=== PATIENT | female | born 1995 | race Caucasian/White ===

== ENCOUNTER 2016-10-16 08:40 | Emergency (ER) | payer MEDICAID ==
[~2016-10-16] VITALS: Ht 172.7 cm; Wt 84.4 kg
[~2016-10-16 08:40] MED LIST: CALTTAB5 PO; ORTHTAB4 PO; PREN1PAK2 PO
[2016-10-16 08:47] VITALS: BP 135/84; PULSE 60; RESP 18; TEMP 97.9; O2SAT 99
[2016-10-16] MEDS ORDERED: DIAZ5 PO (09:06)
[2016-10-16] MEDS ORDERED: MEDR4PAK PO (09:06)
[2016-10-16] MEDS ORDERED: IBUP-232 PO (09:06)
[2016-10-16] MEDS ORDERED: oxyCODONE/ACETAMINOPHEN 5 MG/325 MG TAB PO ONE (09:15)
[2016-10-16] MEDS ORDERED: KETOROLAC TROMETHAMINE 60 MG/2 ML (IM) VIAL IM ONE (09:15)
[2016-10-16] MEDS ORDERED: DIAZEPAM 5 MG TAB PO ONE (09:15)
[2016-10-16] MEDS ORDERED: DEXAMETHASONE SOD PHOS 20 MG/5 ML VIAL IM ONE (09:15)
--- NOTE | 2016-10-16 09:17 | PD ---
HPI Chief Complaint: Back/ Neck Pain or Injury Time Seen by Provider: 08:57 Travel History International Travel<30 days: No Contact w/Intl Traveler<30days: No History of Present Illness HPI Patient is a 21-year-old female who presents to emergency room complaints of pain to her left side of her neck. Patient reports that while she was lifting up her 5-month-old son, she must have turned her neck the wrong way. Reports that she immediately felt a pain to the left side of her neck and reports pain with turning her neck. Reports no fall or overt trauma other than picking up her 5 month old son. Reports, "my neck just feels stuck to one side." Denies fever/chills, no other c/o. PFSH Past Medical History Asthma: No Blood Disorders: No Heart Rhythm Problems: No Cardiovascular Problems: No Chest Pain: No Cystic Fibrosis: No Diminished Hearing: No Headaches: No Hypertension: No Neurologic: No Respiratory: Yes (SNORING) Immunizations Current: Yes Migraines: No Seizures: No Sickle Cell Disease: No Sleep Apnea: No Past Surgical History Abdominal Surgery: No Appendectomy: No Cardiac Surgery: No Cholecystectomy: No Ear Surgery: No Endocrine Surgery: No Eye Surgery: No Genitourinary Surgery: No Gynecologic Surgery: No Neurologic Surgery: No Oral Surgery: No Thoracic Surgery: No Family History Family History: Negative Social History Alcohol Use: No Tobacco Use: No Substance Use: No Allergies-Medications (Allergen,Severity, Reaction): Coded Allergies: No Known Allergies (Verified , 10/16/16) Reported Meds & Prescriptions Reported Meds & Active Scripts Active Ibuprofen 600 Mg Tab 600 Mg PO Q6H PRN Valium (Diazepam) 5 Mg Tab 5 Mg PO BID PRN Medrol Dosepak (Methylprednisolone) 4 Mg Dspk 4 Mg PO DIRECTED Per Pharmacist direction Ortho Tri-Cyclen (Norgestimate-Ethinyl Estradiol) 0.18/0.215/0.25 mg-35 Mcg Tab 1 Tab PO DAILY Review of Systems General / Constitutional: No: Fever, Chills Eyes: No: Visual changes HENT: Positive: Neck Stiffness, Neck Pain, No: Headaches Cardiovascular: No: Chest Pain or Discomfort Respiratory: No: Shortness of Breath Gastrointestinal: No: Abdominal Pain Genitourinary: No: Dysuria Musculoskeletal: No: Pain Skin: No Rash Neurologic: No: Weakness Psychiatric: No: Depression Endocrine: No: Polydipsia Hematologic/Lymphatic: No: Easy Bruising Physical Exam Narrative GENERAL: NAD, Nontoxic SKIN: Warm and dry. HEAD: Atraumatic. Normocephalic. EYES: Pupils equal and round. No scleral icterus. No injection or drainage. ENT: No nasal bleeding or discharge. Mucous membranes pink and moist. NECK: Trachea midline. No JVD. Patient with increased muscle spasms to the left side of her neck, pts head is turned to the right, pain to neck muscles with ROM to left, no midline tenderness CARDIOVASCULAR: Regular rate and rhythm. No murmur appreciated. RESPIRATORY: No accessory muscle use. Clear to auscultation. Breath sounds equal bilaterally. GASTROINTESTINAL: Abdomen soft, non-tender, nondistended. Hepatic and splenic margins not palpable. MUSCULOSKELETAL: No obvious deformities. PSYCHIATRIC: Appropriate mood and affect; insight and judgment normal. Data Data Last Documented VS Vital Signs Date Time Temp Pulse Resp B/P Pulse Ox O2 Delivery O2 Flow Rate FiO2 10/16/16 08:47 97.9 60 18 135/84 99 Room Air Orders Ed Urine Pregnancytest Poc (10/16/16 09:01) Diazepam (Valium) (10/16/16 09:15) Dexamethasone Inj (Decadron Inj) (10/16/16 09:15) Ketorolac Inj (Toradol Inj) (10/16/16 09:15) Oxycodone-Acetamin 5-325 Mg (Percocet (10/16/16 09:15) MDM Medical Decision Making Medical Screen Exam Complete: Yes Emergency Medical Condition: Yes Interpretation(s) Vital Signs Date Time Temp Pulse Resp B/P Pulse Ox O2 Delivery O2 Flow Rate FiO2 10/16/16 08:47 97.9 60 18 135/84 99 Room Air Differential Diagnosis neck spasms, torticollis Narrative Course Patient is a 21-year-old female who presents to emergency room with complaints of neck pain. Patient reports that she went to pick Her 5-month-old son and twisted her neck last night. Patient reports that she did not take any medication for relief of symptoms. Reports that she woke up today with her neck feeling stuck to the right. Patient reports increased tightness to the left side of her neck. On evaluation, patient nontoxic, patient does appear to have torticollis. Will give patient Motrin, steroids as well as medications for pain. Patient's will drive her home. Patient is not breast-feeding at this time. I reviewed all medications that will be administered to her today, I also reviewed all the medications that she'll be sent home with. Understands that she should not drive while taking muscle relaxers. Discussed with patient signs and symptoms of when to return to the emergency room. Diagnosis Primary Impression: Torticollis, acute Patient Instructions: Narcotic given in the ED, General Instructions Additional Instructions: Please follow-up with primary care doctor Return to the emergency room as needed or if symptoms worsen or persist Do not drive or operate heavy machinery while taking muscle relaxers Med/Other Pt SpecificInfo: Prescription(s) given Scripts Ibuprofen 600 Mg [id number] Mg PO Q6H PRN (Pain/Inflammation) #40 TAB Ref 0 Prov:Svitlana Howell DO 10/16/16 Diazepam (Valium)5 Mg Tab5 Mg PO BID PRN (SPASM) #10 TAB Ref 0 Prov:Svitlana Howell DO 10/16/16 Methylprednisolone Dosepak (Medrol Dosepak)4 Mg Dspk4 Mg PO DIRECTED #1 DSPK Ref 0 Per Pharmacist direction Prov:Svitlana Howell DO 10/16/16 Disposition: 01 DISCHARGE HOME Condition: Stable Svitlana Howell DO Oct 16, 2016 09:17
[2016-12-17] MEDS ORDERED: PROC2.5C RECTAL (15:04)
[2017-01-15] MEDS ORDERED: COLA100C3 PO (10:39)
[2017-01-15] MEDS ORDERED: ORTHTAB4 PO (10:39)
== END 2016-10-16 10:09 | disposition home or self-care (01) ==
LOC: PHED 08:40
DX: M43.6 Torticollis (principal)
CPT/HCPCS: 84703; 96372; 99283; J1100; J1885